=== PATIENT | female | born 1990 | race Hispanic/Latino ===

== ENCOUNTER → 2018-08-15 | Outpatient (CLI) | payer OTHER ==
[~2018-08-15] MED LIST: CLOB100F13 TP; LEVO100T12 PO; [UNRECOGNIZED DRUG - CODE] TP
== END | disposition home or self-care (01) ==
LOC: RAH 14:40
PROVIDERS: ATTEND Internal Medicine Endocrinology, Diabetes & Metabolism
DX: D25.9 Leiomyoma of uterus, unspecified (principal); E04.2 Nontoxic multinodular goiter
CPT/HCPCS: 36415; 76536; 76856; 84439; 84443

== ENCOUNTER → 2019-01-26 | Outpatient (CLI) | payer OTHER ==
[2019-01-26 08:23] LABS: BASOPHILS % (AUTO) 0.9 % (0.0-5.0); HEMATOCRIT 30.1 % (36-48); LYMPHOCYTES % (AUTO) 31.6 % (21.0-51.0); MEAN CORPUSCULAR HEMOGLOBIN 20.2 pg (27.0-33.0); MEAN CORPUSCULAR HGB CONC 30.7 g/dL (32.0-36.0); MEAN CORPUSCULAR VOLUME 65.9 fL (79-99); NEUTROPHILS % (AUTO) 58.5 % (40.0-77.0); PLATELET COUNT (AUTO) 414 K/uL (130-400); RED BLOOD CELL COUNT(AUTO) 4.56 MIL/uL (4.00-5.50); RED CELL DISTRIBUTION WIDTH 18.7 % (11.0-15.5); WHITE BLOOD COUNT (AUTO) 6.7 K/uL (4.8-10.8)
[2019-01-26 08:32] LABS: APPEARANCE,URINE Clear (CLEAR); BILIRUBIN,URINE Negative (NEGATIVE); COLOR,URINE Yellow (YELLOW); GLUCOSE, URINE (UA) Negative (NEGATIVE); KETONES,URINE Negative (NEGATIVE); LEUKOCYTE ESTERASE ,URINE Negative (NEGATIVE); NITRATE,URINE Negative (NEGATIVE); OCCULT BLOOD,URINE Trace (NEGATIVE); PROTEIN,URINE Negative (NEGATIVE); UROBILINOGEN,URINE 0.2 mg/dL (0.2-1.0)
[2019-01-26 08:34] LABS: BACTERIA,URINE Rare /HPF (None Seen); RBC,URINE 0-1 /HPF (0-1); SQUAMOUS EPITHELIAL CELL,UR Rare /HPF (0-2); WBC,URINE 0-1 /HPF (0-1)
[2019-01-26 08:48] LABS: ALBUMIN 3.5 g/dL (3.5-5.0); BILIRUBIN,TOTAL 0.1 mg/dL (0.2-1.0); CREATININE 0.7 mg/dL (0.5-1.5); POTASSIUM 3.9 mmol/L (3.5-5.1); THYROID STIMULATING HORMONE 2.67 uIU/mL (0.36-3.74); TOTAL PROTEIN, SERUM 7.7 g/dL (6.0-8.3)
[2019-01-26 09:45] LABS: ERYTHROCYTE SEDIMENTATION RATE 22 MM/HR (0-20)
== END | disposition home or self-care (01) ==
LOC: LAB 07:30
PROVIDERS: ATTEND Nurse Practitioner Family
DX: F41.1 Generalized anxiety disorder (principal)
CPT/HCPCS: 36415; 80053; 80061; 81001; 82306; 84439; 84443; 84480; 84481; 85025; 85651; 86376

== ENCOUNTER 2019-08-07 11:06 | Inpatient (IN) | payer OTHER ==
[~2019-08-07] VITALS: Ht 149.9 cm; Wt 73.0 kg
[2019-08-07] VITALS (7 sets, daily range): BP systolic 85–105; BP diastolic 51–61
[2019-08-07 11:54] LABS: APPEARANCE,URINE Clear (CLEAR); BILIRUBIN,URINE Negative (NEGATIVE); COLOR,URINE Yellow (YELLOW); GLUCOSE, URINE (UA) Negative (NEGATIVE); KETONES,URINE 15 mg/dL (NEGATIVE); LEUKOCYTE ESTERASE ,URINE Negative (NEGATIVE); NITRATE,URINE Negative (NEGATIVE); OCCULT BLOOD,URINE Large (NEGATIVE); PROTEIN,URINE Negative (NEGATIVE); UROBILINOGEN,URINE 0.2 mg/dL (0.2-1.0)
[2019-08-07 11:57] LABS: HCG,QUAL RESULT NEGATIVE (NEGATIVE)
[2019-08-07 12:17] LABS: BACTERIA,URINE Few /HPF (None Seen)
[2019-08-07 12:42] LABS: BASOPHILS % (AUTO) 1.2 % (0.0-5.0); EOSINOPHILS % (AUTO) 1.3 % (0.0-8.0); HEMATOCRIT 22.8 % (36-48); LYMPHOCYTES % (AUTO) 32.1 % (21.0-51.0); MEAN CORPUSCULAR HEMOGLOBIN 19.8 pg (27.0-33.0); MEAN CORPUSCULAR VOLUME 63.8 fL (79-99); MONOCYTES % (AUTO) 5.7 % (3.0-13.0); NEUTROPHILS % (AUTO) 59.7 % (40.0-77.0); PLATELET COUNT (AUTO) 413 K/uL (130-400); RED BLOOD CELL COUNT(AUTO) 3.58 MIL/uL (4.00-5.50); WHITE BLOOD COUNT (AUTO) 7.2 K/uL (4.8-10.8)
[2019-08-07 12:50] LABS: CREATININE 0.9 mg/dL (0.5-1.5); POTASSIUM 3.4 mmol/L (3.5-5.1)
[2019-08-07 12:59] LABS: INR 0.94 (0.85-1.15); PARTIAL THROMBOPLASTIN TIME 22.4 SEC (26.3-35.5); PROTHROMBIN TIME 9.9 SEC (9.6-11.6)
[2019-08-07] MEDS ORDERED: SODIUM CHLORIDE 0.9% 1000ML 1,000 ML IV ONE (13:13)
[2019-08-07] MEDS ORDERED: LACTATED RINGERS 1000ML 1,000 ML IV ONE (15:21)
[2019-08-07] MEDS: NORETHINDRONE-ETHINYL ESTRAD 1 TABLET PO SCH (16:00)
--- NOTE | 2019-08-07 17:00 | NUR ---
PATIENT RECEIVED FROM ER AND WAS ORIENTED TO UNIT.
[2019-08-07] MEDS ORDERED: LEVO100T12 PO (18:03)
[2019-08-07] MEDS ORDERED: [UNRECOGNIZED DRUG - CODE] PO (18:03)
--- NOTE | 2019-08-07 19:00 | NUR ---
PATIENT UP AND VOIDED AND PASSED 3 CLOTS. PATIENT WAS INSTRUCTED TO STOP USING TAMPONS AND USE PERIPADS FOR PAD COUNT.
--- NOTE | 2019-08-07 21:20 | NUR ---
1st unit of blood transfused, no reactions noted. Addendum: 08/07/19 at 2124 by JAIDA SMITH RN Amended: Links added.
--- NOTE | 2019-08-07 21:53 | NUR ---
2ND unit of blood started, verified with pili Partida RN Addendum: 08/07/19 at 2207 by JAIDA SMITH RN Amended: Links added.
[2019-08-08 00:45] VITALS: BP 95/46
--- NOTE | 2019-08-08 00:45 | NUR ---
2ND unit of blood transfused, no reactions noted. Addendum: 08/08/19 at 0054 by JAIDA SMITH RN Amended: Links added.
[2019-08-08] MEDS: NORETHINDRONE-ETHINYL ESTRAD 1 TABLET PO SCH ×5 (02:07→23:54)
[2019-08-08 03:11] VITALS: BP 91/52
[2019-08-08 06:38] LABS: HEMATOCRIT 26.4 % (36-48); MEAN CORPUSCULAR HEMOGLOBIN 21.8 pg (27.0-33.0); MEAN CORPUSCULAR HGB CONC 32.1 g/dL (32.0-36.0); MEAN CORPUSCULAR VOLUME 67.8 fL (79-99); PLATELET COUNT (AUTO) 336 K/uL (130-400); RED CELL DISTRIBUTION WIDTH 21.2 % (11.0-15.5); WHITE BLOOD COUNT (AUTO) 7.1 K/uL (4.8-10.8)
[2019-08-08 07:28] VITALS: BP 103/56
--- NOTE | 2019-08-08 08:00 | NUR ---
PATIENT ASSESSED AT THIS TIME AND HAD GONE TO BATHROOM AND VOIDED 100CC AND PASSED A LEMON SIZE CLOT.
--- NOTE | 2019-08-08 10:00 | NUR ---
PATIENT UP AND VOIDED 100CC AND NO OTHER CLOTS NOTED AT THIS TIME.
[2019-08-08 11:48] VITALS: BP 106/52
[2019-08-08] MEDS: LACTATED RINGERS 1000ML 1,000 ML IV SCH ×2 (14:30→22:42)
--- NOTE | 2019-08-08 14:30 | NUR ---
DR. LANDON ROUNDED AND ORDER PATIENT TO HAVE A CBC DONE NOW AND IF STABLE CAN EAT A REGULAR DIET AND PLACED ON NPO AFTER 12 MIDNIGHT. PATIENT TO HAVE CBC REPEATED IN A.M. IF PATIENT CONTINUES TO BLEED WILL DO A D&C IN A.M. PATIENT STABLE AT THIS TIME AND IS NO LONGER PASSING CLOTS.
[2019-08-08 15:00] LABS: HEMATOCRIT 25.5 % (36-48); MEAN CORPUSCULAR HGB CONC 32.5 g/dL (32.0-36.0); MEAN CORPUSCULAR VOLUME 67.8 fL (79-99); PLATELET COUNT (AUTO) 332 K/uL (130-400); RED BLOOD CELL COUNT(AUTO) 3.77 MIL/uL (4.00-5.50); RED CELL DISTRIBUTION WIDTH 20.8 % (11.0-15.5); WHITE BLOOD COUNT (AUTO) 9.5 K/uL (4.8-10.8)
[2019-08-08 16:00] VITALS: BP 111/65
--- NOTE | 2019-08-08 16:00 | NUR ---
VITAL SIGNS ARE STABLE AND CBC WAS STABLE SO REGULAR DIET WAS ORDER.
[2019-08-08 19:52] VITALS: BP 102/60
--- NOTE | 2019-08-08 20:02 | NUR ---
HYGIENE Instructed patient that she may shower. Informed that IV can be saline locked to allow her to shower more easily. Encouraged her to call for assistance. Shampoo, soap, toothpaste, toothbrush, extra towels and new patient gown brought in for patient. Patient expresses thanks, but refuses shower at this time and states she will shower herself in the morning. Addendum: 08/08/19 at 2004 by DENAE BLACKWELL RN RN Amended: Links added.
[2019-08-09 00:03] VITALS: BP 113/72
--- NOTE | 2019-08-09 00:09 | NUR ---
BLEEDING Pt reports passing a clot while sitting on toilet. Small golf ball sized clot noted in nun's cap. Patient states she did not change her ju pad because she had hardly any bleeding. Patient states she has not had to change her pad since she last informed me. Addendum: 08/09/19 at 0014 by DENAE BLACKWELL RN RN Amended: Links added.
[2019-08-09 04:05] VITALS: BP 88/48
--- NOTE | 2019-08-09 04:15 | NUR ---
Patient asleep, but easily awakens while VS be taken. Patient denies pain and states she just went to the bathroom. No clots noted in nuns cap and patient states that she still did not need to change her ju pad. Addendum: 08/09/19 at 0418 by DENAE BLACKWELL RN RN Amended: Links added.
[2019-08-09] MEDS: NORETHINDRONE-ETHINYL ESTRAD 1 TABLET PO SCH (06:24)
[2019-08-09] MEDS: LACTATED RINGERS 1000ML 1,000 ML IV SCH (06:24)
--- NOTE | 2019-08-09 07:10 | NUR ---
REPORT Report to Umu Davila, RNC to assume patient care
[2019-08-09 07:11] LABS: HEMATOCRIT 26.2 % (36-48); MEAN CORPUSCULAR HEMOGLOBIN 22.1 pg (27.0-33.0); NUCLEATED RED BLOOD CELLS 0.1 % (0.0-0.19); PLATELET COUNT (AUTO) 321 K/uL (130-400)
[2019-08-09 08:16] VITALS: BP 103/55
--- NOTE | 2019-08-09 09:30 | NUR ---
Pt up to void. Light pink discharge in urine. No clots. Dr Calabrese given pt update via telephone. says pt may eat, and that he will come see patient later and probably send her home. POC discussed with pt and family. Verb understanding.
--- NOTE | 2019-08-09 10:30 | NUR ---
Dr Calabrese @ bedside. Pt says she is feeling much better than yesterday. Denies heavy vag bleeding or clots. Discharge orders received. Iv D/c'd. Site WNL. Pt kassi proc well
--- NOTE | 2019-08-09 10:41 | NUR ---
Discharge instructions given verbally and printed. Pt to follow up with Dr Soto on Saturday. Rx given for Iron and control pills. Pt verb and signed understanding of instructions.
--- NOTE | 2019-08-09 11:00 | NUR ---
Discharged home in stable condition via wheelchair.
== END 2019-08-09 11:00 | disposition home or self-care (01) | DRG 812 ==
LOC: EDH 11:06 → EDHIP 11:07 → OBSVTOIN 11:07 → WSH 16:39
PROVIDERS: ADMIT Obstetrics & Gynecology; ATTEND Obstetrics & Gynecology
PROC: 30233N1 Transfusion of Nonautologous Red Blood Cells into Peripheral Vein, Percutaneous Approach (ICD-10-PCS; principal; 2019-08-07)
DX: D64.9 Anemia, unspecified (principal); D25.9 Leiomyoma of uterus, unspecified; E03.9 Hypothyroidism, unspecified; N92.0 Excessive and frequent menstruation with regular cycle; F41.9 Anxiety disorder, unspecified; Z82.49 Family history of ischemic heart disease and other diseases of the circulatory system; Z83.3 Family history of diabetes mellitus; Z98.51 Tubal ligation status
CPT/HCPCS: 36415; 36430; 76830; 80048; 81001; 81025; 85025; 85027; 85610; 85730; 86850; 86900; 86901; 86922; G0378; J7030; J7120; P9016

== ENCOUNTER → 2019-08-26 | Outpatient (CLI) | payer OTHER ==
[~2019-08-26] MED LIST changes: -CLOB100F13 TP; +[UNRECOGNIZED DRUG - CODE] PO; -[UNRECOGNIZED DRUG - CODE] TP
== END | disposition home or self-care (01) ==
LOC: CANPRECLI → RAH 08-24 13:31
PROVIDERS: ATTEND Obstetrics & Gynecology
DX: R31.9 Hematuria, unspecified (principal)
CPT/HCPCS: 76770

== ENCOUNTER → 2019-09-11 | Outpatient (CLI) | payer OTHER ==
[2019-09-11 12:12] LABS: BASOPHILS % (AUTO) 0.9 % (0.0-5.0); EOSINOPHILS % (AUTO) 0.9 % (0.0-8.0); HEMATOCRIT 31.9 % (36-48); LYMPHOCYTES % (AUTO) 28.6 % (21.0-51.0); MEAN CORPUSCULAR HGB CONC 32.1 g/dL (32.0-36.0); MEAN CORPUSCULAR VOLUME 81.1 fL (79-99); MONOCYTES % (AUTO) 7.8 % (3.0-13.0); NEUTROPHILS % (AUTO) 61.8 % (40.0-77.0); PLATELET COUNT (AUTO) 330 K/uL (130-400); RED BLOOD CELL COUNT(AUTO) 3.93 MIL/uL (4.00-5.50); RED CELL DISTRIBUTION WIDTH 28.8 % (11.0-15.5); WHITE BLOOD COUNT (AUTO) 6.9 K/uL (4.8-10.8)
== END | disposition home or self-care (01) ==
LOC: LAB 11:13
PROVIDERS: ATTEND Obstetrics & Gynecology
DX: N92.0 Excessive and frequent menstruation with regular cycle (principal); D50.0 Iron deficiency anemia secondary to blood loss (chronic)
CPT/HCPCS: 36415; 85025

== ENCOUNTER 2019-09-17 12:48 | Inpatient (IN) | payer OTHER ==
[~2019-09-17] VITALS: Ht 149.9 cm; Wt 72.6 kg
[2019-09-17] MEDS ORDERED: SODIUM CHLORIDE 0.9% 1000ML 1,000 ML IV ONE (13:17)
[2019-09-17 13:38] LABS: BASOPHILS % (AUTO) 0.7 % (0.0-5.0); EOSINOPHILS % (AUTO) 0.6 % (0.0-8.0); LYMPHOCYTES % (AUTO) 29.6 % (21.0-51.0); MEAN CORPUSCULAR HEMOGLOBIN 26.1 pg (27.0-33.0); MEAN CORPUSCULAR VOLUME 81.7 fL (79-99); MONOCYTES % (AUTO) 4.7 % (3.0-13.0); NEUTROPHILS % (AUTO) 64.4 % (40.0-77.0); PLATELET COUNT (AUTO) 336 K/uL (130-400); RED BLOOD CELL COUNT(AUTO) 2.46 MIL/uL (4.00-5.50); RED CELL DISTRIBUTION WIDTH 27.8 % (11.0-15.5); WHITE BLOOD COUNT (AUTO) 8.9 K/uL (4.8-10.8)
[2019-09-17 13:41] LABS: HEMATOCRIT 20.1 % (36-48)
[2019-09-17 13:50] LABS: CARBON DIOXIDE 25 mmol/L (21-32); CHLORIDE 104 mmol/L (101-111); CREATININE 0.9 mg/dL (0.5-1.5); GLOMERULAR FILTR. RATE CALC 79 mL/min (>60); GLUCOSE,RANDOM 107 mg/dL (70-105); POTASSIUM 3.1 mmol/L (3.5-5.1); SODIUM SERUM 140 mmol/L (136-145); UREA NITROGEN, BLOOD 12 mg/dL (7-18)
[2019-09-17 14:00] LABS: ALANINE AMINOTRANSFERASE 21 U/L (12-78); ALBUMIN 3.1 g/dL (3.5-5.0); ASPARTATE AMINOTRANSFERASE 15 U/L (10-37); HCG,QUANTITATIVE 0 mIU/mL (0-5); TOTAL PROTEIN, SERUM 7.2 g/dL (6.0-8.3)
[2019-09-17 14:01] LABS: BILIRUBIN,TOTAL < 0.1 mg/dL (0.2-1.0)
[2019-09-17] MEDS ORDERED: MEDROXYPROGESTERONE ACET 5 MG TAB PO SCH (14:59)
[2019-09-17] MEDS ORDERED: ACETAMINOPHEN 325 MG TAB PO PRN (15:00)
[2019-09-17] MEDS ORDERED: SODIUM CHLORIDE 0.9% 250 ML IV ONE (15:28)
[2019-09-17 16:15] VITALS: BP 112/71
[2019-09-17 19:27] VITALS: BP 105/54
[2019-09-17] MEDS ORDERED: FERS325 PO (19:45)
[2019-09-17 19:56] LABS: HEMATOCRIT 26.9 % (36-48); MEAN CORPUSCULAR HGB CONC 32.6 g/dL (32.0-36.0); PLATELET COUNT (AUTO) 275 K/uL (130-400); RED BLOOD CELL COUNT(AUTO) 3.24 MIL/uL (4.00-5.50); RED CELL DISTRIBUTION WIDTH 21.7 % (11.0-15.5); WHITE BLOOD COUNT (AUTO) 7.1 K/uL (4.8-10.8)
--- NOTE | 2019-09-17 21:15 | NUR ---
DR. DUNAWAY IN PT'S ROOM TO CHECK ON PT; H&H OF 8.8 AND 26.7 REPORTED TO PT, NO NEW ORDERS NOTED.
[2019-09-17 23:11] VITALS: BP 102/60
[2019-09-18] VITALS (24 sets, daily range): BP systolic 98–122; BP diastolic 56–75
--- NOTE | 2019-09-18 04:20 | NUR ---
PT. UP AND SHOWERED. WELL TOLERATED.
--- NOTE | 2019-09-18 06:00 | NUR ---
PT. TAKEN TO O.R BY Ahsan LOTT. DENIED DISCOMFORT.
[2019-09-18] MEDS ORDERED: LACTATED RINGERS 1000ML 1,000 ML IV ONE (06:07)
[2019-09-18] MEDS ORDERED: CEFAZOLIN SODIUM 1 GM VIAL ONE ×3 (06:07→22:43)
[2019-09-18] MEDS ORDERED: CEFAZOLIN SODIUM 1 GM VIAL IVP PRN (06:15)
[2019-09-18] MEDS ORDERED: MAGNESIUM SULFATE 1 GM/2 ML VIAL ONE (06:44)
[2019-09-18] MEDS ORDERED: SODIUM CHLORIDE 0.9% 500ML 500 ML IV ONE ×2 (07:53)
--- NOTE | 2019-09-18 08:45 | NUR ---
REPORT RECEIVED FROM ENGINE OILERAMANDA AND PATIENT TRANSFERED VIA BED TO ROOM AT THIS TIME. PATIENT IS STABLE AND C/O HAVING PAIN OF 5. BLOOD TRANSFUSION COMPLETED IN PACU.
--- NOTE | 2019-09-18 09:00 | NUR ---
PATIENT ASSESSED AND SCDs APPLIED. PATIENT VERY DROWSY AND ALLOWED TO GO BACK TO SLEEP. RANKIN DRAINING CLEAR YELLOW URINE.
[2019-09-18] MEDS: DEXTROSE 5 %-0.45 % NACL 1,000 ML IV SCH ×2 (09:30→18:14)
[2019-09-18] MEDS ORDERED: CEFAZOLIN SODIUM 1 GM VIAL IVP SCH ×3 (09:30→20:00)
[2019-09-18 10:55] LABS: HEMATOCRIT 30.8 % (36-48)
[2019-09-18] MEDS ORDERED: MEPERIDINE-PF 75 MG/ML SYG IM PRN (11:15)
[2019-09-18] MEDS ORDERED: IBUPROFEN 600 MG TABLET PO PRN (11:15)
[2019-09-18] MEDS ORDERED: BISACODYL 10 MG SUPP.RECT RC PRN (11:15)
[2019-09-18] MEDS ORDERED: PROMETHAZINE HCL 25 MG/ML 1ML AMPULE IM PRN ×2 (11:15)
[2019-09-18] MEDS ORDERED: SIMETHICONE 80 MG TAB.CHEW PO PRN (11:15)
[2019-09-18] MEDS ORDERED: ACETAMINOPHEN-CODEINE 300/30MG TAB ONE (11:31)
[2019-09-18] MEDS ORDERED: MEPERIDINE-PF 50 MG/ML SYG ONE ×2 (13:52→20:29)
[2019-09-18] MEDS ORDERED: MEPERIDINE-PF 25 MG/ML SYG ONE ×2 (13:52→20:31)
[2019-09-18] MEDS: DOCUSATE SODIUM 100 MG CAP PO PRN (22:54)
[2019-09-19] MEDS: ACETAMINOPHEN-CODEINE 300/30MG TAB PO PRN ×2 (00:09→03:53)
[2019-09-19] MEDS: DEXTROSE 5 %-0.45 % NACL 1,000 ML IV SCH ×2 (02:11→17:30)
[2019-09-19 03:33] VITALS: BP 110/66
[2019-09-19] MEDS: LEVOTHYROXINE 100 MCG TABLET PO SCH (07:01)
[2019-09-19 07:12] LABS: HEMATOCRIT 28.7 % (36-48); MEAN CORPUSCULAR HEMOGLOBIN 26.7 pg (27.0-33.0); MEAN CORPUSCULAR HGB CONC 32.5 g/dL (32.0-36.0); MEAN CORPUSCULAR VOLUME 82.3 fL (79-99); PLATELET COUNT (AUTO) 292 K/uL (130-400); RED BLOOD CELL COUNT(AUTO) 3.49 MIL/uL (4.00-5.50); RED CELL DISTRIBUTION WIDTH 20.5 % (11.0-15.5); WHITE BLOOD COUNT (AUTO) 10.9 K/uL (4.8-10.8)
[2019-09-19 08:00] VITALS: BP 108/74
[2019-09-19] MEDS: DOCUSATE SODIUM 100 MG CAP PO PRN ×2 (09:11→21:11)
[2019-09-19] MEDS: SIMETHICONE 80 MG TAB.CHEW PO PRN ×4 (09:11→21:11)
--- NOTE | 2019-09-19 09:30 | NUR ---
DR. PEREYRA ROUNDED AND INFORMED PATIENT ON NEED TO AMBULATE IN HALLWAY AND POSSIBLE DISCHARGE IN A.M. IF STABLE.
[2019-09-19 11:30] VITALS: BP 109/66
[2019-09-19] MEDS ORDERED: HYDROCODONE/ACETAMINOPHEN 5/325 MG TAB PO PRN (11:30)
[2019-09-19] MEDS ORDERED: ACETAMINOPHEN-CODEINE 300/30MG TAB PO PRN (11:30)
[2019-09-19] MEDS ORDERED: IBUPROFEN 800 MG TAB PO PRN (11:30)
[2019-09-19] MEDS: IBUPROFEN 800 MG TAB PO SCH ×3 (12:30→23:30)
--- NOTE | 2019-09-19 14:00 | NUR ---
PATIENT UP AND AMBULATING IN HALLWAY WITH HER MOTHER FOR THE SECOND TIME TODAY AND THEN TOOK A SHOWER. TOLERATED ACTIVITY WELL.
[2019-09-19 16:00] VITALS: BP 106/58
[2019-09-19 19:29] VITALS: BP 101/55
[2019-09-19 23:49] VITALS: BP 95/63
[2019-09-20] MEDS: DEXTROSE 5 %-0.45 % NACL 1,000 ML IV SCH (01:30)
[2019-09-20 03:49] VITALS: BP 107/68
[2019-09-20] MEDS: IBUPROFEN 800 MG TAB PO SCH (05:28)
[2019-09-20] MEDS: LEVOTHYROXINE 100 MCG TABLET PO SCH (06:16)
[2019-09-20 07:40] VITALS: BP 98/57
--- NOTE | 2019-09-20 08:40 | NUR ---
DR. PEREYRA ROUNDED AND DISCHARGED PATIENT TO HOME. PATIENT IS STABLE.
[2019-09-20] MEDS: DOCUSATE SODIUM 100 MG CAP PO PRN (08:42)
[2019-09-20] MEDS: SIMETHICONE 80 MG TAB.CHEW PO PRN (08:42)
--- NOTE | 2019-09-20 10:15 | NUR ---
PATIENT WAS GIVEN DISCHARGE INSTRUCTIONS AND VERBALIZED UNDERSTANDING INSTRUCTIONS GIVEN. SCRIPT WAS GIVEN TO PATIENT AND WENT THRU ALL MEDS ON DOSAGES AND FREQUENCY.
--- NOTE | 2019-09-20 10:35 | NUR ---
PATIENT WAS TAKEN VIA W/C TO FAMILY VEHICLE AND WAS DISCHARGED TO HER MOTHER IN STABLE CONDITION. PATIENT DENIES PAIN ON DISCHARGE.
== END 2019-09-20 10:35 | disposition home or self-care (01) | DRG 743 ==
LOC: EDH 12:48 → EDHIP 14:32 → OBSVTOIN 14:32 → WSH 16:15
PROVIDERS: ADMIT Obstetrics & Gynecology; ATTEND Obstetrics & Gynecology
PROC: 30233R1 Transfusion of Nonautologous Platelets into Peripheral Vein, Percutaneous Approach (ICD-10-PCS; 2019-09-17)
PROC: 30233N1 Transfusion of Nonautologous Red Blood Cells into Peripheral Vein, Percutaneous Approach (ICD-10-PCS; 2019-09-17)
PROC: 0UT90ZZ Resection of Uterus, Open Approach (ICD-10-PCS; principal; 2019-09-18 06:26)
DX: N92.0 Excessive and frequent menstruation with regular cycle (principal); D50.9 Iron deficiency anemia, unspecified
CPT/HCPCS: 36415; 36430; 80053; 84443; 84702; 85014; 85018; 85025; 85027; 86850; 86900; 86901; 86922; 88307; A4344; G0378; J0690; J2175; J2250; J2370; J2405; J2550; J2704; J2710; J3010; J3475; J3490; J7030; J7040; J7120; P9016

== ENCOUNTER → 2020-12-02 | Outpatient (CLI) | payer OTHER ==
[~2020-12-02] MED LIST changes: +FERS325 PO
[2020-12-02 08:38] LABS: BASOPHILS % (AUTO) 1.6 % (0.0-5.0); EOSINOPHILS % (AUTO) 4.1 % (0.0-8.0); HEMATOCRIT 46.1 % (36-48); LYMPHOCYTES % (AUTO) 33.2 % (21.0-51.0); MEAN CORPUSCULAR HEMOGLOBIN 28.5 pg (27.0-33.0); MEAN CORPUSCULAR HGB CONC 32.1 g/dL (32.0-36.0); MEAN CORPUSCULAR VOLUME 88.7 fL (79-99); MONOCYTES % (AUTO) 9.1 % (3.0-13.0); NEUTROPHILS % (AUTO) 51.7 % (40.0-77.0); PLATELET COUNT (AUTO) 268 K/uL (130-400); RED CELL DISTRIBUTION WIDTH 14.4 % (11.0-15.5); WHITE BLOOD COUNT (AUTO) 3.2 K/uL (4.8-10.8)
[2020-12-02 08:47] LABS: APPEARANCE,URINE Cloudy (CLEAR); BILIRUBIN,URINE Negative (NEGATIVE); COLOR,URINE Yellow (YELLOW); GLUCOSE, URINE (UA) Negative (NEGATIVE); KETONES,URINE Trace mg/dL (NEGATIVE); LEUKOCYTE ESTERASE ,URINE Negative (NEGATIVE); NITRATE,URINE Negative (NEGATIVE); OCCULT BLOOD,URINE Negative (NEGATIVE); PROTEIN,URINE Negative (NEGATIVE)
[2020-12-02 09:03] LABS: BACTERIA,URINE Moderate /HPF (None Seen); RBC,URINE 0-1 /HPF (0-1); WBC,URINE 0-1 /HPF (0-1)
[2020-12-02 09:06] LABS: BILIRUBIN,TOTAL 0.2 mg/dL (0.2-1.0); CREATININE 0.8 mg/dL (0.5-1.5); POTASSIUM 3.6 mmol/L (3.5-5.1); THYROID STIMULATING HORMONE 2.72 uIU/mL (0.36-3.74); TOTAL PROTEIN, SERUM 8.6 g/dL (6.0-8.3)
[2020-12-02 09:50] LABS: ERYTHROCYTE SEDIMENTATION RATE 15 MM/HR (0-20)
== END | disposition home or self-care (01) ==
LOC: LAB 07:46
PROVIDERS: ATTEND Nurse Practitioner Family
DX: Z13.1 Encounter for screening for diabetes mellitus (principal); E03.9 Hypothyroidism, unspecified; E06.3 Autoimmune thyroiditis; N95.1 Menopausal and female climacteric states
CPT/HCPCS: 36415; 80053; 80061; 81001; 82306; 82533; 82626; 82670; 82672; 82677; 82679; 83001; 83002; 84144; 84270; 84403; 84439; 84443; 84479; 84481; 84482; 85025; 85651; 86376; 87088

== ENCOUNTER → 2021-05-26 | Outpatient (CLI) | payer OTHER ==
[2021-05-26 13:06] LABS: APPEARANCE,URINE Clear (CLEAR); BILIRUBIN,URINE Negative (NEGATIVE); COLOR,URINE Yellow (YELLOW); GLUCOSE, URINE (UA) Negative (NEGATIVE); KETONES,URINE Negative (NEGATIVE); LEUKOCYTE ESTERASE ,URINE Negative (NEGATIVE); NITRATE,URINE Negative (NEGATIVE); OCCULT BLOOD,URINE Negative (NEGATIVE); PH,URINE 5.5 (5.0-8.0); PROTEIN,URINE Negative (NEGATIVE)
[2021-05-26 13:10] LABS: BASOPHILS % (AUTO) 0.8 % (0.0-5.0); EOSINOPHILS % (AUTO) 1.7 % (0.0-8.0); HEMATOCRIT 45.1 % (36-48); LYMPHOCYTES % (AUTO) 27.7 % (21.0-51.0); MEAN CORPUSCULAR HEMOGLOBIN 28.7 pg (27.0-33.0); MEAN CORPUSCULAR HGB CONC 31.9 g/dL (32.0-36.0); MONOCYTES % (AUTO) 6.3 % (3.0-13.0); PLATELET COUNT (AUTO) 314 K/uL (130-400); RED BLOOD CELL COUNT(AUTO) 5.01 MIL/uL (4.00-5.50); RED CELL DISTRIBUTION WIDTH 13.4 % (11.0-15.5); WHITE BLOOD COUNT (AUTO) 7.8 K/uL (4.8-10.8)
[2021-05-26 13:35] LABS: ALBUMIN 4.2 g/dL (3.5-5.0); BILIRUBIN,TOTAL 0.4 mg/dL (0.2-1.0); CREATININE 0.8 mg/dL (0.5-1.5); POTASSIUM 4.1 mmol/L (3.5-5.1); THYROID STIMULATING HORMONE 1.12 uIU/mL (0.36-3.74); TOTAL PROTEIN, SERUM 8.8 g/dL (6.0-8.3)
[2021-05-26 14:20] LABS: ERYTHROCYTE SEDIMENTATION RATE 10 MM/HR (0-20)
== END | disposition home or self-care (01) ==
LOC: LAB 12:19
PROVIDERS: ATTEND Nurse Practitioner Family
DX: Z13.1 Encounter for screening for diabetes mellitus (principal); Z13.220 Encounter for screening for lipoid disorders; E06.3 Autoimmune thyroiditis; E03.9 Hypothyroidism, unspecified
CPT/HCPCS: 36415; 80053; 80061; 81003; 82306; 82533; 82627; 82670; 82672; 82677; 82679; 83001; 83002; 83789; 84144; 84255; 84270; 84402; 84403; 84439; 84443; 84479; 84481; 84482; 84630; 85025; 85651; 86376; 86800

== ENCOUNTER → 2021-11-22 | Outpatient (CLI) | payer OTHER | END | disposition home or self-care (01) | LOC: ICE 10:00 | PROVIDERS: ATTEND Internal Medicine Cardiovascular Disease | DX: U07.1 COVID-19 (principal) | CPT/HCPCS: 87635; C9803 ==

== ENCOUNTER → 2022-03-09 | Outpatient (CLI) | payer OTHER ==
[2022-03-09 12:49] LABS: BASOPHILS % (AUTO) 0.6 % (0.0-5.0); EOSINOPHILS % (AUTO) 2.3 % (0.0-8.0); HEMATOCRIT 44.2 % (36-48); LYMPHOCYTES % (AUTO) 35.9 % (21.0-51.0); MEAN CORPUSCULAR HEMOGLOBIN 29.6 pg (27.0-33.0); MEAN CORPUSCULAR VOLUME 89.5 fL (79-99); MONOCYTES % (AUTO) 5.3 % (3.0-13.0); NEUTROPHILS % (AUTO) 55.2 % (40.0-77.0); PLATELET COUNT (AUTO) 335 K/uL (130-400); RED BLOOD CELL COUNT(AUTO) 4.94 MIL/uL (4.00-5.50); RED CELL DISTRIBUTION WIDTH 13.5 % (11.0-15.5); WHITE BLOOD COUNT (AUTO) 6.9 K/uL (4.8-10.8)
[2022-03-09 12:55] LABS: APPEARANCE,URINE Cloudy (CLEAR); BILIRUBIN,URINE Negative (NEGATIVE); COLOR,URINE Yellow (YELLOW); GLUCOSE, URINE (UA) Negative (NEGATIVE); KETONES,URINE 15 mg/dL (NEGATIVE); LEUKOCYTE ESTERASE ,URINE Negative (NEGATIVE); NITRATE,URINE Negative (NEGATIVE); OCCULT BLOOD,URINE Negative (NEGATIVE); PH,URINE 5.5 (5.0-8.0); PROTEIN,URINE Negative (NEGATIVE); UROBILINOGEN,URINE 0.2 mg/dL (0.2-1.0)
[2022-03-09 13:08] LABS: BACTERIA,URINE Many /HPF (None Seen); RBC,URINE 0-1 /HPF (0-1); SQUAMOUS EPITHELIAL CELL,UR Few /HPF (0-2)
[2022-03-09 13:19] LABS: HEMOGLOBIN A1C 5.7 % (4.0-6.0)
[2022-03-09 13:53] LABS: ALBUMIN 4.1 g/dL (3.5-5.0); BILIRUBIN,TOTAL 0.5 mg/dL (0.2-1.0); CREATININE 0.7 mg/dL (0.5-1.5); MAGNESIUM 1.8 mg/dL (1.80-2.40); POTASSIUM 3.9 mmol/L (3.5-5.1); THYROID STIMULATING HORMONE 1.8 uIU/mL (0.36-3.74); TOTAL PROTEIN, SERUM 8.2 g/dL (6.0-8.3)
== END | disposition home or self-care (01) ==
LOC: LAB 11:41
PROVIDERS: ATTEND Physician Assistant Medical
DX: R53.82 Chronic fatigue, unspecified (principal)
CPT/HCPCS: 36415; 80053; 80061; 81001; 82306; 82607; 82627; 82670; 82679; 83001; 83002; 83036; 83735; 84144; 84402; 84403; 84439; 84443; 85025; 87088

== ENCOUNTER → 2023-02-08 | Outpatient (CLI) | payer OTHER ==
[2023-02-08 12:36] LABS: BASOPHILS % (AUTO) 0.7 % (0.0-5.0); EOSINOPHILS % (AUTO) 2.2 % (0.0-8.0); LYMPHOCYTES % (AUTO) 32.9 % (21.0-51.0); MEAN CORPUSCULAR HEMOGLOBIN 29.3 pg (27.0-33.0); MEAN CORPUSCULAR HGB CONC 32.3 g/dL (32.0-36.0); MEAN CORPUSCULAR VOLUME 90.7 fL (79-99); MONOCYTES % (AUTO) 5.9 % (3.0-13.0); NEUTROPHILS % (AUTO) 57.9 % (40.0-77.0); PLATELET COUNT (AUTO) 334 K/uL (130-400); RED BLOOD CELL COUNT(AUTO) 4.85 MIL/uL (4.00-5.50); RED CELL DISTRIBUTION WIDTH 13.5 % (11.0-15.5); WHITE BLOOD COUNT (AUTO) 8.2 K/uL (4.8-10.8)
[2023-02-08 12:58] LABS: HEMOGLOBIN A1C 5.4 % (4.0-6.0)
[2023-02-08 13:03] LABS: ALBUMIN 3.9 g/dL (3.5-5.0); CREATININE 0.8 mg/dL (0.5-1.5); POTASSIUM 4.2 mmol/L (3.5-5.1); THYROID STIMULATING HORMONE 1.72 uIU/mL (0.36-3.74)
== END | disposition home or self-care (01) ==
LOC: LAB 11:43
PROVIDERS: ATTEND Nurse Practitioner Family
DX: E06.3 Autoimmune thyroiditis (principal); R73.03 Prediabetes
CPT/HCPCS: 36415; 80053; 80061; 82306; 83036; 84439; 84443; 85025

== ENCOUNTER → 2023-09-16 | Outpatient (CLI) | payer OTHER ==
[2023-09-16 08:05] LABS: BASOPHILS # (AUTO) 0.07 K/uL (0.00-0.20); BASOPHILS % (AUTO) 0.7 % (0.0-5.0); EOSINOPHILS # (AUTO) 0.16 K/uL (0.00-0.70); EOSINOPHILS % (AUTO) 1.5 % (0.0-8.0); HEMATOCRIT 45.8 % (36-48); IMMATURE GRANULOCYTE ABSOLUTE 0.07 K/uL (0-1); LYMPHOCYTES # (AUTO) 3.5 K/uL (1.0-4.8); LYMPHOCYTES % (AUTO) 33.9 % (21.0-51.0); MEAN CORPUSCULAR HEMOGLOBIN 30.3 pg (27.0-33.0); MONOCYTES # (AUTO) 0.5 K/uL (0.1-1.0); MONOCYTES % (AUTO) 5.2 % (3.0-13.0); NEUTROPHILS # (AUTO) 6.1 K/uL (1.8-7.7); PLATELET COUNT (AUTO) 301 K/uL (130-400); RED BLOOD CELL COUNT(AUTO) 4.98 MIL/uL (4.00-5.50); RED CELL DISTRIBUTION WIDTH 13.4 % (11.0-15.5); WHITE BLOOD COUNT (AUTO) 10.4 K/uL (4.8-10.8)
[2023-09-16 08:13] LABS: HEMOGLOBIN A1C 5.6 % (4.0-6.0)
[2023-09-16 08:43] LABS: ALBUMIN 3.5 g/dL (3.5-5.0); BILIRUBIN,TOTAL 0.3 mg/dL (0.2-1.0); CREATININE 0.8 mg/dL (0.5-1.5); THYROID STIMULATING HORMONE 2.84 uIU/mL (0.36-3.74); TOTAL PROTEIN, SERUM 7.2 g/dL (6.0-8.3)
== END | disposition home or self-care (01) ==
LOC: LAB 07:41
PROVIDERS: ATTEND Nurse Practitioner Family
DX: R73.03 Prediabetes (principal); E06.3 Autoimmune thyroiditis
CPT/HCPCS: 36415; 80053; 80061; 83036; 84439; 84443; 85025

== ENCOUNTER → 2024-04-17 | Outpatient (CLI) | payer OTHER ==
[2024-04-17 11:59] LABS: BASOPHILS # (AUTO) 0.06 K/uL (0.00-0.20); BASOPHILS % (AUTO) 0.9 % (0.0-5.0); EOSINOPHILS % (AUTO) 1.6 % (0.0-8.0); HEMATOCRIT 43.7 % (36-48); IMMATURE GRANULOCYTE ABSOLUTE 0.02 K/uL (0-1); LYMPHOCYTES # (AUTO) 2.5 K/uL (1.0-4.8); LYMPHOCYTES % (AUTO) 38.9 % (21.0-51.0); MEAN CORPUSCULAR HEMOGLOBIN 29.7 pg (27.0-33.0); MEAN CORPUSCULAR HGB CONC 33.2 g/dL (32.0-36.0); MEAN CORPUSCULAR VOLUME 89.5 fL (79-99); MONOCYTES # (AUTO) 0.4 K/uL (0.1-1.0); MONOCYTES % (AUTO) 5.6 % (3.0-13.0); NEUTROPHILS # (AUTO) 3.4 K/uL (1.8-7.7); NEUTROPHILS % (AUTO) 52.7 % (40.0-77.0); PLATELET COUNT (AUTO) 340 K/uL (130-400); RED BLOOD CELL COUNT(AUTO) 4.88 MIL/uL (4.00-5.50); RED CELL DISTRIBUTION WIDTH 13.5 % (11.0-15.5); WHITE BLOOD COUNT (AUTO) 6.4 K/uL (4.8-10.8)
[2024-04-17 12:09] LABS: HEMOGLOBIN A1C 5.6 % (4.0-6.0)
[2024-04-17 12:23] LABS: ALBUMIN 3.9 g/dL (3.5-5.0); BILIRUBIN,TOTAL 0.4 mg/dL (0.2-1.0); CREATININE 0.7 mg/dL (0.5-1.0); POTASSIUM 4.2 mmol/L (3.5-5.1); THYROID STIMULATING HORMONE 0.98 uIU/mL (0.36-3.74); TOTAL PROTEIN, SERUM 8.2 g/dL (6.0-8.3)
== END | disposition home or self-care (01) ==
LOC: LAB 11:11
PROVIDERS: ATTEND Nurse Practitioner Family
DX: R73.03 Prediabetes (principal); E06.3 Autoimmune thyroiditis
CPT/HCPCS: 36415; 80053; 80061; 83036; 84439; 84443; 84480; 84482; 85025

== ENCOUNTER → 2024-11-27 | Outpatient (CLI) | payer OTHER ==
[2024-11-27 12:11] LABS: BASOPHILS # (AUTO) 0.07 K/uL (0.00-0.20); BASOPHILS % (AUTO) 0.9 % (0.0-5.0); EOSINOPHILS # (AUTO) 0.09 K/uL (0.00-0.70); EOSINOPHILS % (AUTO) 1.2 % (0.0-8.0); HEMATOCRIT 42.1 % (36-48); IMMATURE GRANULOCYTE ABSOLUTE 0.03 K/uL (0-1); LYMPHOCYTES # (AUTO) 2.7 K/uL (1.0-4.8); LYMPHOCYTES % (AUTO) 35.5 % (21.0-51.0); MEAN CORPUSCULAR HEMOGLOBIN 30.2 pg (27.0-33.0); MEAN CORPUSCULAR HGB CONC 33.5 g/dL (32.0-36.0); MEAN CORPUSCULAR VOLUME 90.1 fL (79-99); MONOCYTES # (AUTO) 0.5 K/uL (0.1-1.0); MONOCYTES % (AUTO) 6.2 % (3.0-13.0); NEUTROPHILS # (AUTO) 4.3 K/uL (1.8-7.7); NEUTROPHILS % (AUTO) 55.8 % (40.0-77.0); PLATELET COUNT (AUTO) 288 K/uL (130-400); RED BLOOD CELL COUNT(AUTO) 4.67 MIL/uL (4.00-5.50); WHITE BLOOD COUNT (AUTO) 7.6 K/uL (4.8-10.8)
[2024-11-27 12:44] LABS: ALBUMIN 3.8 g/dL (3.5-5.0); BILIRUBIN,TOTAL 0.3 mg/dL (0.2-1.0); CREATININE 0.7 mg/dL (0.5-1.0); POTASSIUM 4.6 mmol/L (3.5-5.1); THYROID STIMULATING HORMONE 1.21 uIU/mL (0.36-3.74); TOTAL PROTEIN, SERUM 7.5 g/dL (6.0-8.3)
[2024-11-27 12:51] LABS: HEMOGLOBIN A1C 5.5 % (4.0-6.0)
== END | disposition home or self-care (01) ==
LOC: LAB 11:32
PROVIDERS: ATTEND Nurse Practitioner Family
DX: Z11.59 Encounter for screening for other viral diseases (principal); E06.3 Autoimmune thyroiditis; R73.03 Prediabetes; E78.5 Hyperlipidemia, unspecified
CPT/HCPCS: 36415; 80053; 80061; 83036; 84439; 84443; 85025; 86803